=== PATIENT | male | born 1985 | race Caucasian/White ===

== ENCOUNTER 2022-02-12 07:46 | Day surgery (SDC) | payer OTHER, SELFPAY ==
[2022-02-06 10:00] VITALS: BMI 32.9
[2022-02-12] VITALS (7 sets, daily range): BP systolic 94–131; BP diastolic 54–91; PULSE 72–84; RESP 14–17; TEMP 36.4–37.6; O2SAT 93–99; BMI 33.6
[2022-02-12] MEDS: LACTATED RINGERS 1,000 ML 100 ML IV (08:35)
--- NOTE | 2022-02-12 09:11 | PM.HP.1 ---
History of Present Illness History of Present Illness Date Patient Seen: 02/12/22 Time Patient Seen: 09:12 Chief complaint: OPEN RIH REPAIR Narrative: 36-year-old man here for elective open right inguinal hernia repair for asymptomatic reducible inguinal hernia. No interval changes in health. Please refer the H and P from December 2021 for further detail. Patient History Medical History (Updated 02/06/22 @ 10:02 by Celena Tripp RN) COVID-19 virus infection (07/09/21) Headache, migraine Hernia HTN (hypertension) Family & Social History Family History Father Hypertension Family/Other Hypertension Mother Gallstones Family/Other Stroke Social History: household members significant other lives independently Yes Tobacco & Substance use: Smoking Status Former smoker alcohol intake current alcohol intake frequency a few times a week Substance Use Type does not use Meds Home Medications and Allergies Home Medications Medication Instructions Recorded Confirmed Type dmxlhgbm-xcjiuzui-hnurt acid 400 1 tab PO DAILY 02/12/22 02/12/22 History mcg-vit K 20 mcg-lycop 300 mcg tablet (Men's Daily Formula) Allergies Allergy/AdvReac Type Severity Reaction Status Date / Time avocado Allergy Itchy Verified 02/12/22 08:10 mouth prednisone AdvReac Severe headaches Verified 02/12/22 08:10 aspartame AdvReac Unknown Headache Verified 02/12/22 08:10 sucralose AdvReac Unknown headaches Verified 02/12/22 08:10 azithromycin AdvReac Migraines Verified 02/12/22 08:10 ketorolac AdvReac Migraines Verified 02/12/22 08:10 Exam Vital Signs (past 8 hours): - 02/12/22 08:32 Temperature 98.2 F Pulse Rate 72 Respiratory Rate 16 Blood Pressure 131/91 H Pulse Oximetry 99 Oxygen Delivery Method Room Air Oxygen Delivery Method Room Air Narrative Exam Narrative: General adult male alert oriented no acute distress Abdomen right groin inguinal hernia marked with my initials. Assessment & Plan Assessment and plan (1) Right inguinal hernia: Status: Acute Assessment & Plan narrative: 36-year-old male here for an elective open right inguinal hernia repair. Overview the operation was again discussed with the patient at the bedside. Operative risks including bleeding, infection, recurrence, chronic pain, damage to surrounding structures, anesthetic complication and were discussed. His questions have been answered and he is in agreement with this plan Time Spent With Patient Critical Care time: I spent a total of [] minutes of critical care time on this patient's care today; this time is exclusive of procedural time.
[2022-02-12] MEDS: CEFAZOLIN 2 GM/100 ML PREMIX 100 ML IV (09:49)
[2022-02-12] MEDS: ACETAMINOPHEN IV 1,000 MG/100 ML VIAL 400 MG IV (09:55)
--- NOTE | 2022-02-12 09:58 | SUR.OPER ---
Supine on padded OR bed, head on pillow, arms secured on padded arm boards at <90 degrees abduction, legs uncrossed, safety belt at thigh, tape over blanket over lower legs. Gel pad placed under bilateral heels. Patients cell phone placed in his belongings bag in pre-op area.
[2022-02-12] MEDS: BUPIVACAINE 0.25% (PF) VIAL 30 ML INJ (10:05)
--- NOTE | 2022-02-12 10:13 | SUR.OPER ---
Patient has his COVID-19 result on his phone, this manual writer witnessed that his test was collected on 02/10/22 with [facility] and the result was NEGATIVE.
[2022-02-12] MEDS: OXYCODONE IR 5 MG TABLET 10 MG PO (11:05)
--- NOTE | 2022-02-12 11:14 | P.OP_ITS ---
Operative Date/Time/Diagnoses Date of procedure: 02/12/22 Time of procedure: 11:14 Pre-op diagnosis: Symptomatic right inguinal hernia Post-op diagnosis: same Procedure & Clinicians Procedure: Open right inguinal hernia repair with mesh Same procedure as scheduled: Yes Indications: Symptomatic reducible right inguinal hernia Surgeon: Montez Vogt Yes if Unassisted: Yes Anesthesia Type: General Operative Notes Findings: Direct floor defect. No indirect hernia Specimen(s): none sent Estimated Blood Loss (mL): 20 Procedure in detail: The patient was placed supine on the table and bilateral lower extremity compression devices were applied. Anesthesia was induced they were intubated with an LMA and received Ancef. A time-out was performed. They were prepped and draped in sterile fashion. The right external inguinal ring and the anterior superior iliac crest were identified and marked. 1 finger breath above the inguinal ligament the skin was infiltrated with 0.25% bupivacaine. The skin incision was made here and the subcutaneous tissues were divided with electrocautery exposing the external oblique aponeurosis which was then opened along the direction of its fibers. Using blunt dissection the internal oblique aporneurosis was from the external oblique upper leaflet.. Using a kittner the cord was carefully dissected away from the inguinal canal adjacent to the pubic tubercle. The cord including the vas deferens, testicular bloody supply, ilioguinal and genital nerve were encircled with a [place] drain. A direct floor defect was identified and it was reduced into the abdomen and the internal oblique aporneuorsis was approximated to the inguinal ligament with Ethibond suture to reapproximate the floor. The cremasteric fibers surrounding the cord were divided using electrocautery adjacent to the internal ring.. The vas deferens and the testicular vessels were preserved and protected. A careful inspection of the cord contents demonstrated no evidence of an indirect hernia.. I selected a 7x 15 cm lightweight Pro Loop hernia mesh. The inferior medial aspect of the mesh was anchored to insertion of the rectus muscle to the pubic tubercle such that there was approximately 2 cm of tubercle overlap with Ethibond and then was run in interrupted fashion along the inferior edge of the mesh to the shelving edge of the inguinal ligament. Interrupted 3 0 Vicryl suture was used to anchor the superior aspect of the mesh to the conjoined tendon in several places. The tails were then reapproximated loosely around the spermatic cord. The tails of the mesh were then tucked under the external oblique aponeurosis. The repair was checked for hemostasis. The wound was irrigated with sterile saline. The external oblique aponeurosis was reapproximated in a running fashion using 3 0 Vicryl. The subcutaneous tissues were reapproximated with 3 0 Vicryl skin closed with 4 0 Monocryl followed by the application of Dermabond. At the end of the operation I ensured that both testicles were within the scrotum. The sponge instrument count at the end operation was correct. The patient emerged from anesthesia was extubated and transferred to the postoperative care unit in stable condition. A total of 30 ml of of 0.25% bupivicaine was used to infiltrate the skin. Post-operative Condition: stable Disposition: same day surgery
[2022-02-12] MEDS: ONDANSETRON 4 MG/2 ML INJ IV (11:20)
== END 2022-02-12 11:44 | disposition home or self-care (01) ==
PROVIDERS: PCP Family Medicine; Referring Provider Surgery; Visit Provider Surgery
PROC: (CPT 49505; principal; 2022-02-12 09:45)
DX: K40.90 Unilateral inguinal hernia, without obstruction or gangrene, not specified as recurrent (principal); I10 Essential (primary) hypertension
CPT/HCPCS: 49505; 00830; 00860; 82962; J0131; J0690; J1170; J2405; J2704